=== PATIENT | male | born 1955 | race African-American/Black ===

== ENCOUNTER → 2016-12-27 | Outpatient (CLI) | payer OTHER ==
[~2016-12-27] MED LIST: CETI10TA84 PO; CYCL10TA6 PO; DICL-201 PO; FEXO1TAB49 PO; FLUT0.15 NAE; NAPR-1169 PO; PRED50TA PO
--- NOTE | 2016-12-27 14:44 | DIAGNOSTIC IMAGING REPORT ---
CERVICAL SPINE 2 OR 3 VIEWS CLINICAL HISTORY: CERVICALGIA COMPARISON STUDY: None. FINDINGS: Cervical spine is visualized C1-T1. There is mild reversal of the normal lordotic curvature. There is 1 mm of anterolisthesis of C3 on C4. No fractures. Mild disc space narrowing and endplate osteophytes at C3-C4, C4-C5, C5-C6. Prevertebral soft tissues and the C1-C2 interval are intact. Moderate facet degenerative changes at C2-C3 and at C7-T1. IMPRESSION: 1. Mild reversal of the normal lordotic curvature. 2. Mild degenerative disc disease at C3-C4, C4-C5, C5-C6. 3. Minimal anterolisthesis of C3 on C4. 4. No fractures. Electronically signed by: Semaj Cortes M.D. 12/27/2016 2:43 PM Dictated Date/Time: 12/27/2016 2:38 PM
== END | disposition home or self-care (01) ==
LOC: C.RADBC 14:17
PROVIDERS: ATTEND Family Medicine
DX: M54.2 Cervicalgia (principal)

== ENCOUNTER 2017-02-07 17:40 | Emergency (ER) | payer OTHER ==
[~2017-02-07] VITALS: Ht 172.7 cm; Wt 72.6 kg
[2017-02-07 17:46] VITALS: TEMP 36.7; Ht 172.7 cm; Wt 72.6 kg
[2017-02-07] MEDS ORDERED: SODIUM CHLORIDE 0.9% 1000ML 1,000 ML IV ONE (18:00)
[2017-02-07] MEDS ORDERED: DEXAMETHASONE SOD INJ 10 MG/ML VIAL IV ONE (18:00)
[2017-02-07] MEDS ORDERED: KETOROLAC TROMETHAMINE 30 MG/ML VIAL IV STA (18:00)
[2017-02-07 18:28] LABS: URINE APPEARANCE CLEAR (CLEAR); URINE BILIRUBIN NEG (NEG); URINE COLOR YELLOW; URINE NITRITE NEG (NEG); URINE SPECIFIC GRAVITY 1.025 (1.000-1.030); UROBILINOGEN NEG (NEG); ZZUR CULT IF INDIC CLEAN CATCH NO
[2017-02-07 18:37] LABS: BASO % 0.6 %; BASO ABS # 0.03 K/uL (0-0.2); COMPLETE YES; EOS % 2.8 %; HEMATOCRIT 38.2 % (42-52); LYMPH % 44.2 %; LYMPH ABS # 2.04 K/uL (1.2-3.4); MEAN CELL VOLUME 83.6 fL (80-100); MEAN CORPUSCULAR HEMOGLOBIN 27.1 pg (25-34); MEAN CORPUSCULAR HGB CONC 32.5 g/dl (32-36); MEAN PLATELET VOLUME 10.2 fL (7.4-10.4); MONO % 8.2 %; NEUT % 44.2 %; PLATELET COUNT 285 K/uL (130-400); RED BLOOD COUNT 4.57 M/uL (4.7-6.1); WHITE BLOOD COUNT 4.62 K/uL (4.8-10.8)
[2017-02-07 18:41] LABS: MANUAL MICROSCOPIC REQUIRED? NO; REVIEW REQ? NO
[2017-02-07 18:45] LABS: BUN/CREATININE RATIO 14.3 (10-20); CALCIUM 9.4 mg/dl (8.5-10.1); CREATININE 1.4 mg/dl (0.60-1.40); POTASSIUM 3.8 mmol/L (3.5-5.1)
--- NOTE | 2017-02-07 18:46 | DIAGNOSTIC IMAGING REPORT ---
LEFT SHOULDER 3 VIEWS CLINICAL HISTORY: Left shoulder pain. FINDINGS: 3 views of left shoulder are obtained. No prior studies are available for comparison at the time of dictation. The skeletal structures are well mineralized. No fracture is seen. Mild productive degenerative change is noted at the acromioclavicular joint. The glenohumeral articulation is preserved. The overlying soft tissues are within normal. The imaged left upper lobe lung parenchyma appears clear. IMPRESSION: No acute bony abnormality is seen in the left shoulder. Electronically signed by: Eugene Bell M.D. 02/07/2017 6:44 PM Dictated Date/Time: 02/07/2017 6:44 PM
--- NOTE | 2017-02-07 18:47 | DIAGNOSTIC IMAGING REPORT ---
CHEST 2 VIEWS ROUTINE CLINICAL HISTORY: 61 years-old Male presenting with Left shoulder/chest pain. TECHNIQUE: PA and lateral views of the chest were obtained. COMPARISON: None. FINDINGS: Cardiac silhouette top normal in size.. Lungs and pleural spaces clear. Mild anterior wedging deformities of 2 adjacent mid thoracic vertebral bodies. Upper abdomen normal. IMPRESSION: 1. No acute cardiopulmonary disease. 2. Mild wedging deformities of 2 adjacent thoracic vertebral bodies. Correlate for point tenderness to exclude acute compression deformities. Electronically signed by: Charlie Jacobson M.D. 02/07/2017 6:46 PM Dictated Date/Time: 02/07/2017 6:44 PM
[2017-02-07 18:48] LABS: ALB/GLOB RATIO 1.1 (0.9-2)
[2017-02-07] MEDS ORDERED: NAPR-1169 PO (19:15)
[2017-02-07] MEDS ORDERED: FLUT0.15 NAE (19:17)
[2017-02-07] MEDS ORDERED: DICL-201 PO (19:18)
[2017-02-07] MEDS ORDERED: FEXO1TAB49 PO (19:20)
[2017-02-07] MEDS ORDERED: CYCL10TA6 PO (19:21)
[2017-02-07] MEDS ORDERED: CETI10TA84 PO (19:22)
[2017-02-07] MEDS ORDERED: PRED50TA PO (19:27)
[2017-02-07] MEDS ORDERED: NORCO 5/325MG HOME PACK PO ONE (19:30)
[2017-02-07 19:41] VITALS: BP 117/92; PULSE 80; O2SAT 95
--- NOTE | 2017-02-07 20:30 | EMERGENCY ROOM VISIT NOTE ---
History First contact with patient: 17:52 Chief Complaint: BACK PAIN Stated Complaint: SHARP PAIN UPPER L SIDE BACK,PAIN L ARM,NUMB FING History of Present Illness The patient is a 61 year old male who presents to the Emergency Room with complaints of intermittent episode of left shoulder pain radiating down to his left thumb and left second finger. The patient has had symptoms off and on for the past one to 2 weeks. He does not recall a distinct injury or trauma to explain his symptoms. The pain makes it difficult for him to work, as he is self-employed as a hairdresser. The patient did follow with his primary care and was started on Flexeril. He is also utilizing a massage therapist without significant improvement of symptoms. The patient has not had fever, chills, chest pain, chest tightness, or shortness of breath with this. He will occasionally take naproxen, but states this also does not significantly improve his symptoms. The patient rates his overall discomfort a 7/10. Review of Systems More than 10 systems were reviewed and otherwise negative with the exception of history of present illness. Past Medical/Surgical History No pertinent chronic medical disease Family History No pertinent family history Social History Smoking Status: Never Smoker Occupation Status: employed Current/Historical Medications Scheduled Cetirizine (Zyrtec), 10 MG PO DAILY Diclofenac (Voltaren), 75 MG PO BID Naproxen (Naprosyn), 500 MG PO BID Prednisone (Prednisone), 50 MG PO DAILY Scheduled PRN Cyclobenzaprine Hcl (Flexeril), 10 MG PO HS PRN for SPASMS Miscellaneous Medications Fluticasone Propionate (Nasal) (Flonase Allergy Relief), 2 SPR[place]YS [place] Physical Exam Vital Signs Date Time Temp Pulse Resp B/P (MAP) Pulse Ox O2 Delivery O2 Flow Rate FiO2 02/07/17 19:41 80 20 117/92 95 02/07/17 17:46 36.7 107 16 156/94 98 Room Air Pain Rating (0-10): 3.0 Physical Exam VITALS: Vitals are noted on the nurse's note and reviewed by myself. Vital signs stable. GENERAL: Well-developed, well-nourished, male, who is in no acute distress and resting comfortably. Patient is cooperative with the examination. NECK: Supple without nuchal rigidity. No lymphadenopathy. No thyromegaly. Cervical spine is nontender. No significant paravertebral spasm or tenderness. HEART: Regular rate and rhythm without murmurs gallops or rubs. LUNGS: Clear to auscultation bilaterally without wheezes, rales or rhonchi. No retractions or accessory muscle use. ABDOMEN: Positive normal bowel sounds x 4. Soft, nontender, without masses or organomegaly. No guarding or rebound tenderness. MUSCULOSKELETAL: No muscle atrophy, erythema, or edema noted. Patient is with full range of motion of the left upper extremity including the shoulder. There is some tenderness throughout the supraspinatus and the lateral deltoid. Strength is 5/5 throughout however. Coding And Reimbursement Specialist strength is also 5/5. Negative Tinel' s and Phalen's. NEURO: Patient was alert and oriented to person place and time. CN II through XII grossly intact. Deep tendon reflexes 2+ throughout. No focal neurological deficits Medical Decision & Procedures ER Provider Diagnostic Interpretation: CHEST 2 VIEWS ROUTINE CLINICAL HISTORY: 61 years-old Male presenting with Left shoulder/chest pain. TECHNIQUE: PA and lateral views of the chest were obtained. COMPARISON: None. FINDINGS: Cardiac silhouette top normal in size.. Lungs and pleural spaces clear. Mild anterior wedging deformities of 2 adjacent mid thoracic vertebral bodies. Upper abdomen normal. IMPRESSION: 1. No acute cardiopulmonary disease. 2. Mild wedging deformities of 2 adjacent thoracic vertebral bodies. Correlate for point tenderness to exclude acute compression deformities. LEFT SHOULDER 3 VIEWS CLINICAL HISTORY: Left shoulder pain. FINDINGS: 3 views of left shoulder are obtained. No prior studies are available for comparison at the time of dictation. The skeletal structures are well mineralized. No fracture is seen. Mild productive degenerative change is noted at the acromioclavicular joint. The glenohumeral articulation is preserved. The overlying soft tissues are within normal. The imaged left upper lobe lung parenchyma appears clear. IMPRESSION: No acute bony abnormality is seen in the left shoulder. Laboratory Results 02/07/17 18:14 Red Blood Count 4.57, Mean Corpuscular Volume 83.6, Mean Corpuscular Hemoglobin 27.1, Mean Corpuscular Hemoglobin Concent 32.5, Mean Platelet Volume 10.2, Neutrophils (%) (Auto) 44.2, Lymphocytes (%) (Auto) 44.2, Monocytes (%) (Auto) 8.2, Eosinophils (%) (Auto) 2.8, Basophils (%) (Auto) 0.6, Neutrophils # (Auto) 2.04, Lymphocytes # (Auto) 2.04, Monocytes # (Auto) 0.38, Eosinophils # (Auto) 0.13, Basophils # (Auto) 0.03 02/07/17 18:14 Test 02/07/17 18:14 02/07/17 18:18 White Blood Count 4.62 K/uL (4.8-10.8) Red Blood Count 4.57 M/uL (4.7-6.1) Hemoglobin 12.4 g/dL (14.0-18.0) Hematocrit 38.2 % (42-52) Mean Corpuscular Volume 83.6 fL (80-100) Mean Corpuscular Hemoglobin 27.1 pg (25-34) Mean Corpuscular Hemoglobin Concent 32.5 g/dl (32-36) Platelet Count 285 K/uL (130-400) Mean Platelet Volume 10.2 fL (7.4-10.4) Neutrophils (%) (Auto) 44.2 % Lymphocytes (%) (Auto) 44.2 % Monocytes (%) (Auto) 8.2 % Eosinophils (%) (Auto) 2.8 % Basophils (%) (Auto) 0.6 % Neutrophils # (Auto) 2.04 K/uL (1.4-6.5) Lymphocytes # (Auto) 2.04 K/uL (1.2-3.4) Monocytes # (Auto) 0.38 K/uL (0.11-0.59) Eosinophils # (Auto) 0.13 K/uL (0-0.5) Basophils # (Auto) 0.03 K/uL (0-0.2) RDW Standard Deviation 41.7 fL (36.4-46.3) RDW Coefficient of Variation 13.6 % (11.5-14.5) Immature Granulocyte % (Auto) 0.0 % Immature Granulocyte # (Auto) 0.00 K/uL (0.00-0.02) Urine Color YELLOW Urine Appearance CLEAR (CLEAR) Urine pH 6.0 (4.5-7.5) Urine Specific [place] 1.025 (1.000-1.030) Urine Protein NEG (NEG) Urine Glucose (UA) NEG (NEG) Urine Ketones TRACE (NEG) Urine Occult Blood NEG (NEG) Urine Nitrite NEG (NEG) Urine Bilirubin NEG (NEG) Urine Urobilinogen NEG (NEG) Urine Leukocyte Esterase NEG (NEG) Anion Gap 6.0 mmol/L (3-11) Est Creatinine Clear Calc Drug Dose 52.2 ml/min Estimated GFR () 61.5 Estimated GFR (Non- 53.1 BUN/Creatinine Ratio 14.3 (10-20) Calcium Level 9.4 mg/dl (8.5-10.1) Total Bilirubin 0.6 mg/dl (0.2-1) Aspartate Amino Transf (AST/SGOT) 21 U/L (15-37) Alanine Aminotransferase (ALT/SGPT) 35 U/L (12-78) Alkaline Phosphatase 68 U/L (45-117) Total Protein 7.7 gm/dl (6.4-8.2) Albumin 4.0 gm/dl (3.4-5.0) Globulin 3.7 gm/dl (2.5-4.0) Albumin/Globulin Ratio 1.1 (0.9-2) Lipase 95 U/L (73-393) Bedside Troponin I < 0.030 ng/ml (0-0.045) Medications Administered Medications (Trade) Dose Ordered Sig/Taylor Route Start Time Stop Time Status Last Admin Dose Admin Sodium Chloride 1,000 ml @ 999 mls/hr Q1H1M ONCE IV 02/07/17 18:00 02/07/17 19:00 DC 02/07/17 18:00 999 MLS/HR Ketorolac Tromethamine (Toradol Inj) 30 mg NOW STAT IV 02/07/17 18:00 02/07/17 18:02 DC 02/07/17 18:16 30 MG Dexamethasone Sodium Phosphate (Decadron Inj) 10 mg NOW ONCE IV 02/07/17 18:00 02/07/17 18:02 DC 02/07/17 18:16 10 MG Acetaminophen/ Hydrocodone Bitart (Malin 5/325mg Home Pack) 1 homepack UD ONCE PO 02/07/17 19:30 02/07/17 19:31 DC 02/07/17 19:32 1 HOMEPACK ECG Change: Normal sinus rhythm @100bpm Voltage criteria for left ventricular hypertrophy Abnormal ECG No previous ECGs available ED Course Physical exam and history were performed. Nursing notes, EMR, and Medication List were personally reviewed. Patient appears to have left shoulder pain rating down his left arm. IV access was established and labs were obtained. I examined the patient does have some tenderness throughout the supraspinatus and the deltoid, and his symptoms certainly could be musculoskeletal. However based on the patient's age I did elect to perform an EKG and placed the patient on a monitoring and evaluation advisor. Chest x- ray and shoulder x-ray were performed. The patient was given IV fluids, IV Toradol, and IV Decadron. The patient's blood work is as above and was reviewed. He does not have a significant elevated white blood cell count, worsening anemia, bandemia, or significant intellectual and imbalance. His EKG did not show acute ST elevation or evidence of ischemia. Troponin 1 was negative. Lipase and transaminases were not diagnostic. X-rays of the chest and shoulder did not show obvious findings to swing the patient's discomfort. He evidently does have some thoracic spine findings, however the patient is not significant tender in this area. Overall the patient did have some improvement of his symptoms after Toradol and Decadron. At this time I do suspect a musculoskeletal etiology for the patient' s symptoms. I will give him a home pack of Vicodin as well as a prescription for prednisone. The patient is to continue Flexeril and naproxen at home. He certainly could have some level of carpal tunnel or other orthopedic cause of his symptoms. The patient does not live distinctly close to [place], and will follow up closer to home for further care and management. He was otherwise invited back to the ER with any new, worsening, or concerning symptoms. The chart was completed utilizing [employer] Speech Voice Recognition Software. Grammatical errors, random word insertions, pronoun errors, and incomplete sentences are an occasional consequence of this system due to software limitations, ambient noise, and hardware issues. Any formal questions or concerns about the content, text, or information contained within the body of this dictation should be directly addressed to the provider for clarification. . Medical Decision Differential diagnosis includes, but is not limited to: Sprain, strain, fracture , dislocation, subluxation, contusion, cardiopulmonary event, and others Medication Reconcilliation Current Medication List: was personally reviewed by me Blood Pressure Screening Patient's blood pressure: Normal blood pressure Impression Primary Impression: Left shoulder pain Departure Information Dispostion Home / Self-Care Condition GOOD Prescriptions Prednisone (Prednisone) 50 Mg Tab 50 MG PO DAILY for 5 Days, #5 TAB Prov: Harvey Reddy PA-C 02/07/17 Forms HOME CARE DOCUMENTATION FORM, IMPORTANT VISIT INFORMATION Patient Instructions My [facility] Additional Instructions You were seen and evaluated today on an emergency basis only. This is not a substitute for, or an effort to provide, complete comprehensive medical care. It is not possible to recognize and treat all injuries or illnesses in a single emergency department visit. For this reason it is recommended that you followup with your primary care physician this week for ongoing care and evaluation. For baseline pain relief you may alternate ibuprofen and acetaminophen every 4 hours for pain control. Take 600 mg ibuprofen (Advil) and then 4 hours later take 1000 mg acetaminophen (Tylenol). Do not take more than 3000 mg acetaminophen in a single day. Malin (hydrocodone/acetaminophen) 5/325 mg (homepack) every 6 hours as needed for worsening breakthrough pain. Do not drink or drive on [place]. This medication will likely make you tired. Do not take Malin and Tylenol at the same time as both contain acetaminophen. Malin may cause constipation. You may wish to take an [id number] stool softener like Colace if this occurs. Continue your muscle relaxers as previously prescribed. Take prednisone daily for the next 5 days. You are welcome to return to the emergency department anytime with new, worsening, or concerning symptoms.
== END 2017-02-07 19:43 | disposition home or self-care (01) ==
LOC: C.EDB 17:41 → C.EDA 19:43
DX: M25.512 Pain in left shoulder (principal); Z79.899 Other long term (current) drug therapy

== ENCOUNTER → 2017-08-01 | Outpatient (CLI) | payer OTHER ==
[~2017-08-01] MED LIST changes: -FEXO1TAB49 PO; -PRED50TA PO
--- NOTE | 2017-08-01 12:08 | DIAGNOSTIC IMAGING REPORT ---
L HIP UNILATERAL 2 VIEWS CLINICAL HISTORY: PAIN IN L HIP pain COMPARISON: None. DISCUSSION: Moderate degenerative narrowing left hip joint space. No evidence for acetabular protrusion. Mild peripheral osteophytic reaction. Acetabular margin. There is no evidence for soft tissue swelling. IMPRESSION: Moderate degenerative change left hip. No evidence for fracture or subluxation. The above report was generated using voice recognition software. It may contain grammatical, syntax or spelling errors. Electronically signed by: Dominguez Schilling M.D. 08/01/2017 12:06 PM Dictated Date/Time: 08/01/2017 12:05 PM
== END | disposition home or self-care (01) ==
LOC: C.RADBC 11:28
PROVIDERS: ATTEND Family Medicine
DX: M16.12 Unilateral primary osteoarthritis, left hip (principal)